=== PATIENT | female | born 1990 | race Hispanic/Latino ===

== ENCOUNTER 2018-05-12 17:18 | Inpatient (IN) | payer SELFPAY ==
[2018-05-12 18:00] LABS: #Basophils 0.1 thou/uL (0.0-0.2); #Eosinphils 0.1 thou/uL (0.0-0.7); #Lymphocytes 3.8 thou/uL (1.20-3.40); #Monocytes 1.2 thou/uL (0.11-0.59); #Neutrophils 10.8 thou/uL (1.40-6.50); %Basophils 0.3 % (0.0-1.0); %Eosinophils 0.7 % (0.0-10.0); %Lymphocytes 23.6 % (21.0-51.0); %Monocytes 7.6 % (0.0-10.0); %Neutrophils 67.7 % (42.0-75.0); Hemoglobin 16.5 g/dL (12.0-16.0); Mean Corpuscular HGB CONC 32.5 g/dL (32.0-36.0); Mean Corpuscular Hemoglobin 29.5 pg (27.0-31.0); Mean Corpuscular Volume 90.7 fL (78.0-98.0); Mean Platelet Volume 7.6 fL (7.4-10.4); Platelet Count 329 thou/uL (130-400); RBC Distribution Width 12.2 % (11.5-14.5); Red Blood Cell (RBC) Count 5.59 mill/uL (4.20-5.40); White Blood Cell (WBC) Count 15.9 thou/uL (4.8-10.8)
[2018-05-12] MEDS ORDERED: Ondansetron PF 4 MG/2 ML Vial ONE (18:46)
[2018-05-12 18:54] LABS: Bilirubin Negative (Negative); Blood, Urine Negative (Negative); Clarity CLOUDY (Clear); Glucose, Urine (Dipstick) 100 mg/dL (Negative); Leukocyte Moderate (Negative); Nitrite Negative (Negative); Protein, Urine (Dipstick) 30 mg/dL (Neg-Trace); Specific Gravity, Urine 1.033 (1.002-1.036)
[2018-05-12 19:03] LABS: Pathc Cast-AUWi Flag 13.99 (0-2.49)
[2018-05-12 19:05] LABS: ALT (SGPT) 36 U/L (8-55); AST (SGOT) 28 U/L (5-34); Albumin 4.5 g/dL (3.5-5.0); Alkaline Phosphatase 67 U/L (40-150); BUN (Urea Nitrogen) 10 mg/dL (7.0-18.7); Bilirubin, Total 1.4 mg/dL (0.2-1.2); Calc. Creatinine Clearance 0 mL/min (70-130); Calcium 9.7 mg/dL (7.8-10.44); Carbon Dioxide 23 mmol/L (22-29); Chloride 103 mmol/L (98-107); Estimated GFR-MDRD Greater than 90; Globulin 3.8 g/dL (2.4-3.5); Glucose 100 mg/dL (70-105); Lipase 24 U/L (8-78); Potassium 3.4 mmol/L (3.5-5.1); Protein, Total 8.3 g/dL (6.0-8.3); Sodium 137 mmol/L (136-145)
[2018-05-12 19:05] LABS: Pregnancy Test - Urine (BHCG) Negative (Negative); Pregu Control Background? CLEAR/WHITE (CLR/WHITE); Pregu Control Bar Appear? YES (CONTROL BAR); Specific Gravity 1.033 (1.002-1.036)
[2018-05-12 19:16] LABS: Bacteria/HPF 2+ HPF (None Seen); Hyaline Casts/LPF 4-6 HYALINE CAST LPF (0-3 Hyaline); Manual Microscopic Reviewed? No Path Casts Seen
[2018-05-12] MEDS ORDERED: Morphine 4 MG/ML VIAL ONE (19:37)
[2018-05-12 19:41] LABS: Anion Gap 14 mmol/L (10-20)
[2018-05-12] MEDS ORDERED: Piperacillin/Tazobactam 3.375 GM VIAL ONE (22:18)
[2018-05-12] MEDS ORDERED: Morphine 4 MG/ML VIAL SLOW IVP PRN (23:47)
[2018-05-13] MEDS: Sodium Chloride 0.9% 1,000 ML IV SCH ×2 (00:38→07:19)
[2018-05-13 01:41] VITALS: BMI 30.9
[2018-05-13] MEDS ORDERED: Ketorolac Tromethamine 30 MG/ML VIAL IVP SCH (06:00)
[2018-05-13] MEDS ORDERED: Morphine 4 MG/ML VIAL SLOW IVP PRN (06:46)
[2018-05-13] MEDS ORDERED: Ondansetron PF 4 MG/2 ML Vial IVP PRN ×2 (06:47→13:39)
[2018-05-13] MEDS ORDERED: cefOXitin 2 GM in Sodium Chloride 0.9% 100 ML IVPB SCH ×2 (08:00→20:00)
--- NOTE | 2018-05-13 10:09 | HP ---
DATE OF ADMISSION: 05/13/2018 CHIEF COMPLAINT: Right upper quadrant pain. HISTORY OF PRESENT ILLNESS: This is a 27-year-old female who presents with a few day histor y of pain in her upper abdomen, specifically right upper quadrant, described as sharp, does not radia te, associated with nausea, no vomiting, no change in stools. She denies previous known history of g allstones, jaundice, or pancreatitis. No history of inflammatory bowel disease, chronic weight loss. Ultrasound showing gallstones. Minimal elevation of her total bilirubin. Admitted and more comfor table after some IV pain medicine. PAST MEDICAL HISTORY: She denies. PAST SURGICAL HISTORY: She denies. MEDICINES TAKEN DAILY: None. ALLERGIES: No known drug allergies. SOCIAL HISTORY: No smoking, alcohol or drugs. FAMILY HISTORY: Noncontributory to GI malignancy or anesthetic related complication. REVIEW OF SYSTEMS: Ten system review of systems otherwise negative unless described above. PHYSICAL EXAMINATION: VITAL SIGNS: Pulse 90, respirations 18, temperature 97.7, blood pressure 108/71. HEENT: Sclerae are anicteric. Oropharynx clear. NECK: No lymphadenopathy. CHEST: Clear. HEART: Regular rate and rhythm. ABDOMEN: Soft, tender right upper quadrant. No guarding or rebound. No abdominal hernias. EXTREMITIES: No ischemia or edema to extremities. LABORATORY DATA: Total bilirubin is elevated slightly at 1.4. White blood cell count is 13. Ultras ound shows gallstones, common bile ducts normal size. ASSESSMENT: Acute cholecystitis with elevation of total bilirubin. PLAN: Laparoscopic cholecystectomy with intraoperative cholangiogram. Risks, benefits, and alternat joseph discussed. She gives consent. We will do this today.
[2018-05-13] MEDS ORDERED: Iothalamate Meglumine 60% 50 ML VIAL FS ONE (11:49)
[2018-05-13] MEDS ORDERED: Bupivacaine/Epinephrine 0.25% 30 ML VIAL ONE (11:49)
[2018-05-13] MEDS ORDERED: Fentanyl 100 MCG/2 ML VIAL ONE (11:52)
[2018-05-13] MEDS ORDERED: cefOXitin 2 GM VIAL ONE (12:26)
[2018-05-13] MEDS ORDERED: Dextrose 50% Abboject 50 ML SYRINGE SLOW IVP PRN (13:39)
[2018-05-13] MEDS ORDERED: Calcium Carbonate 500 MG ChewTAB PO PRN (13:39)
[2018-05-13] MEDS ORDERED: Dextrose 5% in Water 1,000 ML IV PRN (13:39)
[2018-05-13] MEDS ORDERED: Sodium Chloride 0.9% 1,000 ML IV SCH (13:39)
[2018-05-13] MEDS ORDERED: HYDROcodone/Acetaminophen 10/325 mg Tablet PO PRN ×2 (13:39)
[2018-05-13] MEDS ORDERED: hydrALAZINE 20 MG/ML VIAL SLOW IVP PRN (13:39)
[2018-05-13] MEDS ORDERED: Ketorolac Tromethamine 30 MG/ML VIAL IVP PRN (13:39)
[2018-05-13] MEDS ORDERED: Promethazine HCl 25 MG/ML VIAL IM PRN (13:39)
[2018-05-13] MEDS ORDERED: Mag-Al 1200 mg/1200 mg/30 ML UDCUP PO PRN (13:39)
--- NOTE | 2018-05-13 13:54 | ULT ---
RIGHT UPPER QUADRANT ULTRASOUND: 05/12/18 HISTORY: Right upper quadrant abdominal pain for one day. Vomiting. There are nonmobile echogenic foci demonstrating posterior shadowing within the neck of the gallbladd er likely related to gallbladder calculi. Gallbladder wall thickness is at the upper limits of normal , but there is no pericholecystic fluid seen. The common duct measures 0.5 cm in diameter which is wi thin normal limits Pancreas is mostly obscured by bowel gas. The visualized portions of the IVC, liver, and right kidney demonstrate a normal sonographic appearance. The right kidney measures 10.2 cm in length. IMPRESSION: Cholelithiasis with gallbladder wall thickness at the upper limits of normal. The common duct is norm al in caliber. POS: ARI
--- NOTE | 2018-05-13 16:13 | RAD ---
INTRAOPERATIVE CHOLANGIOGRAM 05/13/18 HISTORY: 27-year-old female, followup right upper quadrant pain and laparoscopic cholecystectomy. Two portable fluoroscopic spot films are presented for interpretation. There is injected contrast in the common bile duct and extending into intrahepatic ducts. There is emptying in the duodenum. No yuko dence for abnormal ductal dilatation or intraductal calculus. IMPRESSION: Unremarkable intraoperative cholangiogram. POS: ARI
[2018-05-13 16:29] VITALS: BP 121/75; TEMP 98.3
[2018-05-13] MEDS ORDERED: Famotidine/PF 20 mg/2ml Vial SLOW IVP SCH (21:00)
[2018-05-13] MEDS ORDERED: Famotidine 20 MG TAB PO SCH (21:00)
== END 2018-05-13 16:45 | disposition home or self-care (01) | DRG 419 ==
LOC: ERS 17:18 → SURG B 22:00
PROVIDERS: ADMIT Surgery; ATTEND Surgery
PROC: 0FT44ZZ Resection of Gallbladder, Percutaneous Endoscopic Approach (ICD-10-PCS; principal; 2018-05-12)
PROC: BF101ZZ Fluoroscopy of Bile Ducts using Low Osmolar Contrast (ICD-10-PCS; 2018-05-12)
DX: K81.0 Acute cholecystitis (principal)
CPT/HCPCS: 36415; 47532; 76705; 80053; 81003; 81015; 81025; 83690; 85025; 88304; 90471; 90686; G0008; J0131; J0694; J1885; J2270; J2405; J2543; J3010; J7050; Q9961

== ENCOUNTER 2019-03-07 19:20 | Emergency (ER) | payer OTHER, SELFPAY ==
[2019-03-07 20:10] LABS: Bilirubin Negative (Negative); Blood, Urine Negative (Negative); Clarity Turbid (Clear); Glucose, Urine (Dipstick) Normal (Negative); Leukocyte 75 Leu/uL (Negative); Nitrite Negative (Negative); Pregnancy Test - Urine (BHCG) Negative (Negative); Pregu Control Background? CLEAR/WHITE (CLR/WHITE); Pregu Control Bar Appear? YES (CONTROL BAR); Protein, Urine (Dipstick) 10 mg/dL (Neg-Trace); Specific Gravity 1.025 (1.002-1.036)
[2019-03-07 20:17] LABS: Bacteria/HPF 1+ HPF (None Seen)
[2019-03-07 20:23] LABS: #Eosinphils 0.1 thou/uL (0.0-0.7); #Monocytes 0.9 thou/uL (0.11-0.59); #Neutrophils 7.5 thou/uL (1.40-6.50); %Basophils 0.3 % (0.0-1.0); %Eosinophils 0.7 % (0.0-10.0); %Lymphocytes 25.6 % (21.0-51.0); %Neutrophils 65.5 % (42.0-75.0); Hemoglobin 14.5 g/dL (12.0-16.0); Mean Corpuscular Hemoglobin 31.6 pg (27.0-31.0); Mean Corpuscular Volume 90.4 fL (78.0-98.0); Mean Platelet Volume 7.7 fL (7.4-10.4); Platelet Count 273 thou/uL (130-400); RBC Distribution Width 12.2 % (11.5-14.5); Red Blood Cell (RBC) Count 4.57 mill/uL (4.20-5.40); White Blood Cell (WBC) Count 11.5 thou/uL (4.8-10.8)
[2019-03-07 20:45] LABS: ALT (SGPT) 47 U/L (8-55); AST (SGOT) 25 U/L (5-34); Albumin 4.2 g/dL (3.5-5.0); Alkaline Phosphatase 67 U/L (40-150); Anion Gap 12 mmol/L (10-20); BUN (Urea Nitrogen) 12 mg/dL (7.0-18.7); Calc. Creatinine Clearance 0 mL/min (70-130); Calcium 8.9 mg/dL (7.8-10.44); Carbon Dioxide 21 mmol/L (22-29); Chloride 108 mmol/L (98-107); Estimated GFR-MDRD Greater than 90; Globulin 2.8 g/dL (2.4-3.5); Glucose 99 mg/dL (70-105); Potassium 3.2 mmol/L (3.5-5.1); Sodium 138 mmol/L (136-145)
[2019-03-07] MEDS ORDERED: Ondansetron ODT 4 MG TAB ONE (20:54)
== END 2019-03-07 21:06 | disposition home or self-care (01) ==
LOC: ERS 19:20
DX: N39.0 Urinary tract infection, site not specified (principal); R11.2 Nausea with vomiting, unspecified
CPT/HCPCS: 36415; 80053; 81003; 81015; 81025; 85025; 99284; Q0162